=== PATIENT | female | born 1985 | race Caucasian/White ===

== ENCOUNTER 2017-03-14 00:26 | Inpatient (IN) ==
[2017-03-14 02:36] LABS: Apearance,Urine Slightly Hazy (Clear); Bacteria,Urine Occasional /HPF (Few); Bilirubin,Urine Negative (Negative); Blood, Urine Negative (Negative); Glucose,Urine (UA) Negative (Negative); Ketones,Urine 5 mg/dL (Negative); Mucus,Urine Occasional /LPF (Occasional); Nitrite,Urine Negative (Negative); Protein,Urine Negative; RBC,Urine <1 /HPF (0-4); Squamous Epithelial Cell,Urine Occasional /HPF (0-10); Urine Color Yellow (Yellow); Urine Specific Gravity 1.014 (1.001-1.035); WBC,Urine 1 /HPF (0-6)
[2017-03-14] MEDS: METHYLDOPA 250 MG TABLET PO SCH ×2 (08:19→21:01)
[2017-03-14] MEDS ORDERED: ACETAMINOPHEN/CODEINE 300-30 MG TABLET PO PRN ×3 (21:03→22:53)
[2017-03-14] MEDS ORDERED: CODEINE PO PRN (21:04)
[2017-03-14] MEDS ORDERED: ACETAMIN PO PRN (21:04)
[2017-03-15] MEDS ORDERED: FAMOTIDINE 20 MG/2 ML VIAL IV PRN (00:01)
[2017-03-15] MEDS ORDERED: CITRIC ACID/SODIUM CITRATE 30 ML UDCUP PO PRN (00:01)
[2017-03-15] MEDS ORDERED: ceFAZolin 2,000 MG in PREMIX 1 EACH IV PRN (00:01)
[2017-03-15] MEDS ORDERED: OXYTOCIN/LR 30 UNIT/1,000 ML BAG IV PRN (00:07)
[2017-03-15 06:27] LABS: Basophils % 0.3 % (0.0-0.8); Eosinophils # 0.1 10*3/uL (0.0-0.87); Eosinophils % 1.2 % (0.00-10.9); Hematocrit 35.5 VOL% (35.7-47.0); Hemoglobin 12.1 GM/DL (12.0-16.0); Immature Granulocytes % 0.3 %; Immature Granulocytes Absolute 0.02 #; Lymphocytes # 1.5 10*3/uL (1.4-4.0); Lymphocytes % 20.9 % (21.3-54.2); Mean Corpuscular HGB Conc 34.1 GM/DL (32-36); Mean Corpuscular Hemoglobin 29 PG (27-34); Mean Corpuscular Volume 86.4 FL (87-102); Mean Platelet Volume 11.2 FL (9.6-12.0); Monocytes # 0.7 10*3/uL (0.11-0.8); Monocytes % 8.9 % (1.7-12.7); Neutrophils # 5.1 10*3/uL (1.4-7.4); Neutrophils % 68.4 % (38.7-73.9); Platelet Count 184 T/CUMM (130-400); Red Blood Count 4.11 MC/CUMM (3.8-5.5); Red Cell Distribution Width 13.7 % (9.3-17.3); White Blood Count 7.4 T/CUMM (4-12)
[2017-03-15 06:35] LABS: INR 0.9; PT Patient Result 9.8 SECS; Partial Thromboplastin Time 24.7 SECS (0-40)
[2017-03-15 07:02] LABS: Albumin 2.8 G/DL (3.4-5.0); Bilirubin,Direct 0.12 MG/DL (0.0-0.20); Bilirubin,Total 0.7 MG/DL (0.2-1.0); Calcium 8.7 MG/DL (8.5-10.1); Osmolality,Calculated 276.3 MOS/KG (273-304); Potassium 3.5 MMOL/L (3.5-5.1); Total Protein 6.1 G/DL (6.4-8.3); Uric Acid 3.2 MG/DL (2.6-6.0)
[2017-03-15] MEDS ORDERED: OXYTOCIN 10 UNIT/ML VIAL IM ONE (07:36)
[2017-03-15] MEDS ORDERED: OXYTOCIN/LR 20 UNIT/1,000 ML BAG IV PRN (08:00)
[2017-03-15] MEDS: LACTATED RINGERS 1,000 ML IV PRN ×2 (08:23→08:25)
[2017-03-15] MEDS ORDERED: ONDANSETRON 4 MG/2 ML VIAL ONE (10:07)
[2017-03-15] MEDS ORDERED: MORPHINE 10 MG/10 ML VIAL ONE (10:07)
[2017-03-15 10:16] LABS: Cord Venous Blood HCO3 22.8 MMOL/L; Cord Venous Blood PCO2 58.1 MMHG; Cord Venous Blood PO2 21.8
[2017-03-15 10:53] LABS: Apearance,Urine CLEAR (Clear); Bacteria,Urine Occasional /HPF (Few); Bilirubin,Urine Negative (Negative); Blood, Urine Negative (Negative); Glucose,Urine (UA) Negative (Negative); Ketones,Urine Negative (Negative); Mucus,Urine Occasional /LPF (Occasional); Nitrite,Urine Negative (Negative); Protein,Urine Negative; RBC,Urine <1 /HPF (0-4); Squamous Epithelial Cell,Urine Occasional /HPF (0-10); Urine Color Yellow (Yellow); Urine Specific Gravity 1.008 (1.001-1.035); Urine Urobilinogen < 2.0 EU/DL (0.2-1.0); WBC,Urine 1 /HPF (0-6)
[2017-03-15] MEDS ORDERED: ACETAMINOPHEN 325 MG TABLET PO PRN (13:00)
[2017-03-15] MEDS ORDERED: IBUPROFEN 800 MG TABLET PO PRN (13:00)
[2017-03-15] MEDS ORDERED: RHO(D) IMMUNE GLOBULIN 300 MCG SYRINGE IM ONE (13:00)
[2017-03-15] MEDS ORDERED: LACTATED RINGERS 1,000 ML IV SCH (13:00)
[2017-03-15] MEDS ORDERED: ONDANSETRON 4 MG/2 ML VIAL IV PRN (13:00)
[2017-03-15] MEDS ORDERED: OXYTOCIN/LR 20 UNIT/1,000 ML BAG IV ONE (13:00)
[2017-03-15] MEDS: METHYLDOPA 250 MG TABLET PO SCH (15:03)
[2017-03-15] MEDS: ceFAZolin 1,000 MG in SYRINGE 1 EACH IV SCH (17:18)
[2017-03-15 17:35] LABS: Basophils % 0.2 % (0.0-0.8); Eosinophils % 0.2 % (0.00-10.9); Hematocrit 31.8 VOL% (35.7-47.0); Hemoglobin 11.5 GM/DL (12.0-16.0); Immature Granulocytes % 0.4 %; Immature Granulocytes Absolute 0.04 #; Lymphocytes # 0.7 10*3/uL (1.4-4.0); Lymphocytes % 6.2 % (21.3-54.2); Mean Corpuscular HGB Conc 36.2 GM/DL (32-36); Mean Corpuscular Hemoglobin 31 PG (27-34); Mean Corpuscular Volume 85.5 FL (87-102); Mean Platelet Volume 10.8 FL (9.6-12.0); Monocytes # 0.7 10*3/uL (0.11-0.8); Neutrophils # 9.5 10*3/uL (1.4-7.4); Platelet Count 166 T/CUMM (130-400); Red Blood Count 3.72 MC/CUMM (3.8-5.5); Red Cell Distribution Width 13.3 % (9.3-17.3); White Blood Count 10.9 T/CUMM (4-12)
[2017-03-16] MEDS: ceFAZolin 1,000 MG in SYRINGE 1 EACH IV SCH (01:40)
[2017-03-16] MEDS: METHYLDOPA 250 MG TABLET PO SCH ×3 (03:07→20:45)
[2017-03-16 07:13] LABS: Basophils % 0.2 % (0.0-0.8); Eosinophils # 0.2 10*3/uL (0.0-0.87); Hematocrit 31.6 VOL% (35.7-47.0); Immature Granulocytes % 0.3 %; Immature Granulocytes Absolute 0.03 #; Lymphocytes # 0.7 10*3/uL (1.4-4.0); Lymphocytes % 7.8 % (21.3-54.2); Mean Corpuscular HGB Conc 34.8 GM/DL (32-36); Mean Corpuscular Hemoglobin 30 PG (27-34); Mean Corpuscular Volume 86.3 FL (87-102); Mean Platelet Volume 11.1 FL (9.6-12.0); Monocytes # 0.8 10*3/uL (0.11-0.8); Monocytes % 8.6 % (1.7-12.7); Neutrophils # 7.2 10*3/uL (1.4-7.4); Neutrophils % 81.1 % (38.7-73.9); Platelet Count 182 T/CUMM (130-400); Red Blood Count 3.66 MC/CUMM (3.8-5.5); Red Cell Distribution Width 13.7 % (9.3-17.3); White Blood Count 8.8 T/CUMM (4-12)
[2017-03-16] MEDS: MULTIVITAMIN (PRENATAL) TABLET PO SCH (08:38)
[2017-03-16] MEDS: SIMETHICONE CHEW 80 MG TABLET PO PRN ×2 (08:38→18:51)
[2017-03-16] MEDS: DOCUSATE SODIUM 100 MG CAPSULE PO SCH ×2 (08:38→20:45)
[2017-03-16] MEDS: MAGNESIUM HYDROXIDE SUSP 30 ML UDCUP PO PRN ×2 (08:39→20:45)
[2017-03-16] MEDS: FUROSEMIDE 40 MG/4 ML VIAL IV SCH ×2 (16:24→22:12)
[2017-03-17] MEDS: FUROSEMIDE 40 MG/4 ML VIAL IV SCH (03:54)
[2017-03-17 07:36] VITALS: BP 146/83
[2017-03-17] MEDS: METHYLDOPA 250 MG TABLET PO SCH (08:08)
[2017-03-17] MEDS: MULTIVITAMIN (PRENATAL) TABLET PO SCH (08:08)
[2017-03-17] MEDS: SIMETHICONE CHEW 80 MG TABLET PO PRN (08:08)
[2017-03-17] MEDS: DOCUSATE SODIUM 100 MG CAPSULE PO SCH (08:08)
== END 2017-03-17 13:05 | disposition home or self-care (01) | DRG 765 ==
LOC: N.LDOUT 00:26 → N.LD 00:27 → N.OB 03-15 12:57
PROVIDERS: ADMIT Obstetrics & Gynecology; ATTEND Obstetrics & Gynecology
PROC: LDCSECT (ICD-10-PCS; 2017-03-15 09:00)

== ENCOUNTER 2017-03-26 20:33 | Inpatient (IN) ==
[2017-03-26] MEDS ORDERED: ACETAMINOPHEN 500 MG TABLET PO STA (21:49)
[2017-03-26] MEDS ORDERED: METHYLDOPA 500 MG TABLET PO STA (22:02)
[2017-03-26 22:03] LABS: Apearance,Urine CLEAR (Clear); Bacteria,Urine Occasional /HPF (Few); Bilirubin,Urine Negative (Negative); Blood, Urine Large mg/dL (Negative); Glucose,Urine (UA) Negative (Negative); Ketones,Urine Negative (Negative); Nitrite,Urine Negative (Negative); Protein,Urine Negative; RBC,Urine 23 /HPF (0-4); Squamous Epithelial Cell,Urine Occasional /HPF (0-10); Urine Color Yellow (Yellow); Urine Specific Gravity 1.005 (1.001-1.035); Urine Urobilinogen < 2.0 EU/DL (0.2-1.0); WBC,Urine 19 /HPF (0-6)
[2017-03-26] MEDS ORDERED: ACETAMINOPHEN 500 MG TABLET ONE (22:22)
[2017-03-26] MEDS ORDERED: FUROSEMIDE 40 MG/4 ML VIAL IV STA (22:45)
[2017-03-26] MEDS ORDERED: ACETAMINOPHEN 325 MG TABLET PO PRN (22:47)
[2017-03-26] MEDS ORDERED: FUROSEMIDE 40 MG/4 ML VIAL ONE (23:03)
[2017-03-26 23:29] LABS: Basophils % 0.5 % (0.0-0.8); Eosinophils # 0.3 10*3/uL (0.0-0.87); Eosinophils % 5.2 % (0.00-10.9); Hematocrit 40.2 VOL% (35.7-47.0); Hemoglobin 13.3 GM/DL (12.0-16.0); Immature Granulocytes % 0.3 %; Immature Granulocytes Absolute 0.02 #; Lymphocytes # 1.1 10*3/uL (1.4-4.0); Mean Corpuscular HGB Conc 33.1 GM/DL (32-36); Mean Corpuscular Hemoglobin 29 PG (27-34); Mean Platelet Volume 10.4 FL (9.6-12.0); Monocytes # 0.5 10*3/uL (0.11-0.8); Monocytes % 8.6 % (1.7-12.7); Neutrophils # 4.2 10*3/uL (1.4-7.4); Neutrophils % 67.4 % (38.7-73.9); Platelet Count 321 T/CUMM (130-400); Red Blood Count 4.62 MC/CUMM (3.8-5.5); Red Cell Distribution Width 12.9 % (9.3-17.3); White Blood Count 6.2 T/CUMM (4-12)
[2017-03-26 23:53] LABS: Albumin 3.2 G/DL (3.4-5.0); Bilirubin,Total 0.4 MG/DL (0.2-1.0); Calcium 8.4 MG/DL (8.5-10.1); Osmolality,Calculated 282.1 MOS/KG (273-304); Potassium 3.5 MMOL/L (3.5-5.1); Total Protein 7.1 G/DL (6.4-8.3)
[2017-03-27] MEDS ORDERED: hydrALAZINE 20 MG/1 ML VIAL IV ONE (01:36)
[2017-03-27] MEDS ORDERED: LORazepam 1 MG TABLET PO PRN (01:37)
[2017-03-27] MEDS ORDERED: HydrOXYzine PAMOATE 25 MG CAPSULE PO PRN (01:40)
[2017-03-27 03:59] LABS: Albumin 3.5 G/DL (3.4-5.0); Bilirubin,Total 0.6 MG/DL (0.2-1.0); Calcium 9.2 MG/DL (8.5-10.1); Osmolality,Calculated 283.1 MOS/KG (273-304); Potassium 3.9 MMOL/L (3.5-5.1); Total Protein 7.2 G/DL (6.4-8.3)
[2017-03-27] MEDS: FUROSEMIDE 40 MG/4 ML VIAL IV SCH ×2 (06:02→12:10)
[2017-03-27] MEDS ORDERED: FUROSEMIDE 40 MG/4 ML VIAL IV SCH (08:00)
[2017-03-27 15:25] VITALS: BP 132/77
== END 2017-03-27 16:55 | disposition home or self-care (01) | DRG 776 ==
LOC: N.ED 20:33 → N.EDINP 22:47 → N.OB 23:58
PROVIDERS: ADMIT Obstetrics & Gynecology; ATTEND Obstetrics & Gynecology

== ENCOUNTER 2019-09-28 06:02 | Inpatient (IN) ==
[2019-09-28] MEDS ORDERED: CITRIC ACID/SODIUM CITRATE 30 ML UDCUP PO ONE (06:18)
[2019-09-28] MEDS ORDERED: FAMOTIDINE 20 MG/2 ML VIAL IV ONE (06:18)
[2019-09-28] MEDS ORDERED: ceFAZolin 3,000 MG in SYRINGE 1 EACH IV ONE (06:18)
[2019-09-28] MEDS: LACTATED RINGERS 1,000 ML IV SCH ×2 (06:46→08:31)
[2019-09-28 06:54] LABS: Basophils % 0.2 % (0.0-0.8); Eosinophils % 0.5 % (0.00-10.9); Hematocrit 36.6 VOL% (35.7-47.0); Hemoglobin 11.9 GM/DL (12.0-16.0); Immature Granulocytes % 0.5 %; Immature Granulocytes Absolute 0.04 #; Lymphocytes # 1.3 10*3/uL (1.4-4.0); Lymphocytes % 15.8 % (21.3-54.2); Mean Corpuscular HGB Conc 32.5 GM/DL (32-36); Mean Corpuscular Volume 90.4 FL (87-102); Mean Platelet Volume 10.7 FL (9.6-12.0); Monocytes % 7.6 % (1.7-12.7); Neutrophils % 75.4 % (38.7-73.9); Platelet Count 209 T/CUMM (130-400); Red Blood Count 4.05 MC/CUMM (3.8-5.5); Red Cell Distribution Width 14.7 % (9.3-17.3); White Blood Count 8.1 T/CUMM (4-12)
[2019-09-28] MEDS ORDERED: OXYTOCIN 10 UNIT/ML VIAL IM ONE (07:17)
[2019-09-28] MEDS ORDERED: OXYTOCIN/LR 30 UNIT/1,000 ML BAG IV ONE (07:17)
[2019-09-28 10:07] LABS: Cord Arterial Blood HCO3 30.2 MMOL/L
[2019-09-28 10:09] LABS: Cord Venous Blood HCO3 25.6 MMOL/L; Cord Venous Blood PCO2 45.7 MMHG; Cord Venous Blood PO2 35.6 MMHG
[2019-09-28] MEDS ORDERED: PHENYLEPHRINE 1 MG/10 ML SYRINGE IV ONE (10:36)
[2019-09-28] MEDS ORDERED: fentaNYL 100 MCG/2 ML VIAL ONE (10:36)
[2019-09-28] MEDS ORDERED: MORPHINE 10 MG/10 ML VIAL ONE (10:37)
[2019-09-28] MEDS ORDERED: BUPIVACAINE SPINAL 0.75% 2 ML AMP SPINAL ONE (10:37)
[2019-09-28] MEDS ORDERED: OXYTOCIN/LR 20 UNIT/1,000 ML BAG IV ONE ×2 (12:09→15:59)
[2019-09-28] MEDS ORDERED: ONDANSETRON 4 MG/2 ML VIAL IV PRN ×2 (13:54→15:59)
[2019-09-28] MEDS ORDERED: PROMETHAZINE 25 MG/1 ML VIAL IM PRN (15:52)
[2019-09-28] MEDS ORDERED: RHO(D) IMMUNE GLOBULIN 300 MCG SYRINGE IM ONE (15:59)
[2019-09-28] MEDS ORDERED: ACETAMINOPHEN 325 MG TABLET PO PRN (15:59)
[2019-09-28] MEDS ORDERED: MAGNESIUM HYDROXIDE SUSP 30 ML UDCUP PO PRN (15:59)
[2019-09-28] MEDS ORDERED: SIMETHICONE CHEW 80 MG TABLET PO PRN (15:59)
[2019-09-28] MEDS ORDERED: LACTATED RINGERS 1,000 ML IV SCH (16:00)
[2019-09-28] MEDS ORDERED: FUROSEMIDE 20 MG/2 ML VIAL IV SCH ×2 (16:30)
[2019-09-28] MEDS: ceFAZolin 1,000 MG in SYRINGE 1 EACH IV SCH ×2 (17:05→23:36)
[2019-09-28] MEDS: FUROSEMIDE 40 MG/4 ML VIAL IV SCH ×2 (17:40→23:28)
[2019-09-28 19:34] LABS: Basophils % 0.1 % (0.0-0.8); Eosinophils % 0.2 % (0.00-10.9); Hematocrit 36.2 VOL% (35.7-47.0); Hemoglobin 12.1 GM/DL (12.0-16.0); Immature Granulocytes % 0.4 %; Immature Granulocytes Absolute 0.04 #; Lymphocytes # 0.5 10*3/uL (1.4-4.0); Lymphocytes % 4.4 % (21.3-54.2); Mean Corpuscular HGB Conc 33.4 GM/DL (32-36); Mean Corpuscular Volume 89.4 FL (87-102); Mean Platelet Volume 10.7 FL (9.6-12.0); Monocytes % 4.2 % (1.7-12.7); Neutrophils % 90.7 % (38.7-73.9); Platelet Count 171 T/CUMM (130-400); Red Blood Count 4.05 MC/CUMM (3.8-5.5); Red Cell Distribution Width 14.4 % (9.3-17.3); White Blood Count 10.2 T/CUMM (4-12)
[2019-09-28 19:53] LABS: Lymphocytes 4 % (20-55); Platelet Estimate Normal; Segmented Neutrophils 94 % (50-85); Total Cells Counted 100
[2019-09-28] MEDS: IBUPROFEN 800 MG TABLET PO PRN (20:31)
[2019-09-28] MEDS: DOCUSATE SODIUM 100 MG CAPSULE PO SCH (20:32)
[2019-09-29 05:18] LABS: Basophils % 0.1 % (0.0-0.8); Eosinophils # 0.1 10*3/uL (0.0-0.87); Eosinophils % 0.8 % (0.00-10.9); Hematocrit 30.9 VOL% (35.7-47.0); Hemoglobin 10.6 GM/DL (12.0-16.0); Immature Granulocytes % 0.5 %; Immature Granulocytes Absolute 0.04 #; Lymphocytes # 0.6 10*3/uL (1.4-4.0); Lymphocytes % 7.7 % (21.3-54.2); Mean Corpuscular HGB Conc 34.3 GM/DL (32-36); Mean Corpuscular Volume 88.3 FL (87-102); Monocytes % 7.1 % (1.7-12.7); Neutrophils % 83.8 % (38.7-73.9); Platelet Count 162 T/CUMM (130-400); Red Cell Distribution Width 14.8 % (9.3-17.3); White Blood Count 8.3 T/CUMM (4-12)
[2019-09-29] MEDS: FUROSEMIDE 40 MG/4 ML VIAL IV SCH (06:12)
[2019-09-29] MEDS: IBUPROFEN 800 MG TABLET PO PRN ×2 (06:12→14:55)
[2019-09-29] MEDS: MULTIVITAMIN (PRENATAL) TABLET PO SCH (10:15)
[2019-09-29] MEDS: DOCUSATE SODIUM 100 MG CAPSULE PO SCH ×2 (10:15→21:20)
[2019-09-29] MEDS: METOCLOPRAMIDE 10 MG TABLET PO SCH ×2 (10:15→17:55)
[2019-09-29] MEDS: MAGNESIUM HYDROXIDE SUSP 30 ML UDCUP PO SCH (10:15)
[2019-09-29] MEDS ORDERED: FUROSEMIDE 40 MG/4 ML VIAL IV ONE (17:30)
[2019-09-30] MEDS: METOCLOPRAMIDE 10 MG TABLET PO SCH (08:23)
[2019-09-30] MEDS: MAGNESIUM HYDROXIDE SUSP 30 ML UDCUP PO SCH (08:23)
[2019-09-30] MEDS: DOCUSATE SODIUM 100 MG CAPSULE PO SCH (08:23)
[2019-09-30] MEDS: MULTIVITAMIN (PRENATAL) TABLET PO SCH (08:23)
[2019-09-30] MEDS: IBUPROFEN 800 MG TABLET PO PRN (10:07)
[2019-09-30 14:57] VITALS: BP 138/77
== END 2019-09-30 14:35 | disposition home or self-care (01) | DRG 785 ==
LOC: N.LD 06:02 → N.OB 13:37
PROVIDERS: ADMIT Obstetrics & Gynecology; ATTEND Obstetrics & Gynecology